=== PATIENT | female | born 1935 ===

== ENCOUNTER 2021-02-27 21:15 | Inpatient (IN) | payer OTHER ==
[~2021-02-27] VITALS: Ht 152.4 cm; Wt 54.4 kg
[2021-02-27] MEDS ORDERED: MACRODANTIN100 MG PO (21:40)
[2021-02-27] MEDS ORDERED: ESOMEPRAZOLE MA40 MG PO (21:40)
[2021-02-27] MEDS ORDERED: METOPROLOL SUCC50 MG PO (21:41)
[2021-02-27] MEDS ORDERED: DULOXETINE HCL30 MG PO (21:41)
== END 2021-03-02 14:16 | disposition home or self-care (01) | DRG 395 ==
LOC: ER 21:15 → SURG 02-28 13:23
PROVIDERS: ADMIT Colon & Rectal Surgery; ATTEND Colon & Rectal Surgery
PROC: BW2110Z Computerized Tomography (CT Scan) of Abdomen and Pelvis using Low Osmolar Contrast, Unenhanced and Enhanced (ICD-10-PCS; principal; 2021-02-28)
PROC: 02HV33Z Insertion of Infusion Device into Superior Vena Cava, Percutaneous Approach (ICD-10-PCS; 2021-03-01)
DX: K40.30 Unilateral inguinal hernia, with obstruction, without gangrene, not specified as recurrent (principal); Z20.822 Contact with and (suspected) exposure to COVID-19; E86.0 Dehydration